=== PATIENT | male | born 1985 | race Caucasian/White ===

== ENCOUNTER → 2018-03-21 17:01 | Outpatient (CLI) | payer OTHER, SELFPAY ==
--- NOTE | 2018-03-21 17:07 | DI.MRI.S_ITS ---
PROCEDURE: MR CERVICAL SPINE WO CON INDICATIONS: Neck and right shoulder pain radiating down right arm. Tingling sensation in right 3rd, 4th, 5th digits TECHNIQUE: Noncontrast sagittal T1 spin echo and T2 fast spin echo, sagittal STIR, foraminal oblique sagittal T2 fast spin echo, and axial gradient echo or T2 fast spin echo through the cervical spine. COMPARISON: None. FINDINGS: Image quality: Excellent. Alignment and Curvature: There is normal bony alignment. Bone Marrow: Reactive endplate change is noted adjacent to the C6-C7 disc. Spinal Cord: Visualized spinal cord has normal size and signal. No cerebellar tonsillar herniation. Paraspinous Soft Tissues: No paravertebral masses. Prevertebral soft tissues are normal in thickness. C2-C3: Normal appearance. C3-C4: Loss of disc signal. Minimal, diffuse disc bulge. No central stenosis. No neural foraminal narrowing. No neural impingement. C4-C5: Loss of disc signal. No central stenosis. No neural foraminal narrowing. No neural impingement. C5-C6: Loss of disc signal. Minimal, diffuse disc bulge. No central stenosis. No neural foraminal narrowing. No neural impingement. C6-C7: Loss of disc signal and height. Moderate, diffuse disc bulge. Mild narrowing of the central canal. Moderate bilateral uncovertebral joint hypertrophy. Severe bilateral neural foraminal narrowing with flattening deformity exiting C7 nerve roots. C7-T1: Normal appearance. IMPRESSION: 1. Moderate C6-C7 degenerative disc disease. Mild C3-C4, C4-C5 and C5-C6 degenerative disc disease. 2. Moderate C6-C7 uncovertebral joint hypertrophy. 3. Mild C6-C7 central canal narrowing. 4. Severe bilateral C6-C7 neural foraminal narrowing. 5. Flattened deformity of the exiting bilateral C7 nerve root secondary to neural foraminal narrowing. Dictated by: Coty Jeffries MD, PhD on 03/22/2018 at 8:44 Approved by: Coty Jeffries MD, PhD on 03/22/2018 at 8:49
== END ==
PROVIDERS: Family Provider Preventive Medicine Public Health & General Preventive Medicine; Visit Provider Preventive Medicine Public Health & General Preventive Medicine
DX: M50.11 Cervical disc disorder with radiculopathy, high cervical region (principal); M48.02 Spinal stenosis, cervical region; M25.511 Pain in right shoulder; R20.2 Paresthesia of skin
CPT/HCPCS: 72141